=== PATIENT | female | born 1980 | race African-American/Black ===

== ENCOUNTER 2017-02-14 03:03 | Emergency (ER) | payer OTHER ==
[~2017-02-14] VITALS: Ht 180.3 cm; Wt 143.3 kg
[~2017-02-14 03:03] MED LIST: ALBUTEROL0.09 MG/A1 INH; FLEXERIL10 MG PO; IBUPROFEN600 M1 PO; MOTRIN800 MG PO; PERCOCET 325 MG1 TA2 PO; PERCOCET 5-3251 EACH PO; ROBITUSSIN W/CO10 ML PO; TYLENOL #31 TAB PO; ZOFRAN4 M1 PO; ZOFRAN4 M2 PO; ZOFRAN4 MG PO
[2017-02-14 03:16] VITALS: BP 114/77
--- NOTE | 2017-02-14 03:20 | ED UPPER/LOWER EXTREMITY COMPL ---
History of Present Illness General Chief Complaint: Lower Extremity Problems Stated Complaint: RIGHT LEG SPASMS Source: patient Exam Limitations: no limitations Vital Signs & Intake/Output Vital Signs & Intake/Output Vital Signs Date Time Temp Pulse Resp B/P Pulse O2 O2 Flow FiO2 Ox Delivery Rate 02/14 0316 98.7 90 16 114/77 98 Room Air Allergies Coded Allergies: NO KNOWN ALLERGIES (09/21/16) Reconcile Medications Albuterol Sulfate (Albuterol Sulfate Hfa) 0.09 MG/Actuation PUSHPA 2 PUFF INH Q4- 6 PRN PRN SHORTNESS OF BREATH (Reported) 90 MCG PER PUFF Cyclobenzaprine HCl 10 MG TABLET 1 TAB PO TID PRN SPASM Ibuprofen 800 MG TABLET 1 TAB PO TID PAIN Ibuprofen 600 MG TABLET 1 TAB PO TID PRN PAIN with food Ondansetron HCl (Zofran) 4 MG TABLET 1 TAB PO Q6-8P PRN NAUSEA Oxycodone HCl/Acetaminophen (Percocet 5-325 MG Tablet) 1 EACH TABLET 1 TAB PO TID PRN PAIN OXYCODONE HCL/ACETAMINOPHEN (Percocet 5-325 MG Tablet) 325 MG/5 MG TAB 1 TAB PO Q4-6 PRN PRN PAIN Triage Note: 37yo FEMALE TO TRIAGE VIA WHEELCHAIR W/CO L LEG PAIN AND SPASMS TONITE. DENIES ANY TRAUMA OR INJURY. Triage Nurses Notes Reviewed? yes Onset: Abrupt Duration: day(s): (1) Severity: severe Pain/Injury Location: Right: Other (GROIN). Method of Injury: NONE Modifying Factors: Worsens With: movement, other (WALKING). : No Patient currently breastfeeds: No HPI: 37-year-old female who presents to the ER with chief complaint of severe right groin pain that started earlier today. She states the pain was present in the morning. Denies any trauma or lifting. 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 No fever or chills. No nausea or vomiting. The pain is sharp and severe. It does not radiate any. She states that it hurts to walk and bear weight on the right leg. No history of similar symptoms in the past. She tried Motrin at home this evening without relief. Past History Travel History Traveled to [place] past 21 day No Medical History Any Pertinent Medical History? see below for history Neurological: NONE EENT: NONE Cardiovascular: NONE Respiratory: asthma Gastrointestinal: NONE Hepatic: NONE Renal: NONE Musculoskeletal: NONE Psychiatric: NONE Endocrine: NONE Blood Disorders: NONE Cancer(s): NONE SUBSTANCE ABUSE RN/Reproductive: NONE Tetanus Vaccine: 03/02/12 Surgical History Surgical History: , D+C, LYMPH NODE REMOVAL (BENIGN) Psychosocial History Who do you live with Family What is your primary language Czech Tobacco Use: Current Daily Use Daily Tobacco Use Amount/Type: =< 4 Cigarettes daily Family History Hx Contributory? No Review of Systems Review of Systems Constitutional: Denies: chills, fever. EENTM: Reports: no symptoms. Respiratory: Denies: cough, short of breath. Cardiovascular: Denies: chest pain, palpitations. Gastrointestinal/Abdominal: Denies: abdominal pain. Genitourinary: Reports: see HPI (VAGINAL IRRITATION). Musculoskeletal: Reports: see HPI (RIGHT GROIN PAIN). Denies: joint pain, joint swelling. Skin: Reports: no symptoms. Neurological/Psychological: Reports: no symptoms. Hematologic/Endocrine: Denies: bruising, bleeding, polyuria, polydipsia. Immunological: Denies: splenectomy. All Other Systems: Reviewed and Negative Physical Exam Physical Exam General Appearance: well developed/nourished, alert, awake, mild distress Head: atraumatic Eyes: Bilateral: PERRL, EOMI. Ears, Nose, Throat: normal pharynx, normal ENT inspection, hearing grossly normal Neck: normal inspection, supple Cardiovascular/Respiratory: regular rate/rhythm Gastrointestinal: SOFT, NONTENDER, OBESE Back: normal inspection Leg Left: normal range of motion, normal inspection Leg Right: normal range of motion, normal inspection Hip Left: normal range of motion, normal inspection Hip Right: normal range of motion, normal inspection, pain, TENDER TO PALPATION OVER RIGHT GROIN, NO HERNIA, TENDER WITH RIGHT LOG ROLL Knee Left: normal range of motion, normal inspection Knee Right: normal range of motion, normal inspection Foot Left: normal inspection, normal range of motion Foot Right: normal inspection, normal range of motion Neurologic/Tendon: normal sensation, normal motor functions Skin: intact, normal color, warm/dry Lymphatic: no anterior cervical arnoldo Progress Differential Diagnosis: HERNIA, MUSCULOSKELETAL STRAIN, RENAL STONE, ECTOPIC Plan of Care: Orders Procedure Date/time Status COMPREHENSIVE METABOLIC PANEL 03/29 0326 Complete CBC WITHOUT DIFFERENTIAL 02/14 326 Complete URINE 02/14 325 Complete URINALYSIS 02/14 325 Complete Laboratory Tests 02/14/17 0349: Anion Gap 8, Estimated GFR > 60, BUN/Creatinine Ratio 18.6, Glucose 109 H, Calcium 8.8, Total Bilirubin 0.4, AST 13 L, ALT 25, Alkaline Phosphatase 47, Total Protein 7.1, Albumin 3.9, Globulin 3.2, Albumin/Globulin Ratio 1.2, CBC w Diff NO MAN DIFF REQ, RBC 4.42, MCV 88.3, MCH 29.1, RDW 15.1 H, MPV 8.9, Gran % 66.9, Lymphocytes % 23.2, Monocytes % 6.9, Eosinophils % 1.9, Basophils % 1.1, Absolute Granulocytes 9.3 H, Absolute Lymphocytes 3.2, Absolute Monocytes 1.0 H, Absolute Eosinophils 0.3, Absolute Basophils 0.2, PUBS MCHC 33.0 02/14/17334: Urinalysis LIGHT H, Urine Color YEL, Urine Clarity HAZY H, Urine pH 6.0, Ur Specific [place] >= 1.030, Urine Protein TRACE H, Urine Ketones NEG, Urine Nitrite NEG, Urine Bilirubin NEG, Urine Urobilinogen 0.2, Ur Leukocyte Esterase NEG, Ur Microscopic SEDIMENT EXAMINED, Urine RBC RARE, Urine WBC RARE, Ur Epithelial Cells FEW, Urine Bacteria FEW H, Urine Mucus MOD H, Urine Hemoglobin TRACE-INTACT, Urine Glucose NEG, Urine Test NEGATIVE 4:18 am patient feeling slightly better. Labs pending. SYMPTOMS MUCH IMPROVED. AMBULATORY ON DISCHARGE. SLIGHT ELEVATION IN WBC, NO OTHER ABNORMALITIES. PATIENT WILL FOLLOW UP WITH HER PCP IN THE OFFICE. (MICHAEL LUCIA,SAMIA) Departure Departure Time of Disposition: 445 Disposition: HOME OR SELF CARE Condition: Stable Clinical Impression Primary Impression: Musculoskeletal strain Referrals: SHAISTA CARTER APRN (PCP/Family) Additional Instructions: TAKE THE MOTRIN AND CYCLOBENZAPRINE DIRECTED. FOLLOW UP WITH YOUR PRIMARY CARE DOCTOR IN THE OFFICE. RETURN TO THE ER FOR ANY CHAGING OR WORSENING SYMPTOMS. Departure Forms: Customer Survey General Discharge Information Prescriptions: Current Visit Scripts Ibuprofen 1 TAB PO TID #30 TAB Cyclobenzaprine HCl 1 TAB PO TID PRN SPASM #20 TAB
[2017-02-14 03:59] LABS: ABSOLUTE BASOPHIL COUNT 0.2 /CUMM (0.0-0.2); ABSOLUTE EOSINOPHIL COUNT 0.3 /CUMM (0.0-0.7); ABSOLUTE GRANULOCYTE CT 9.3 /CUMM (1.4-6.5); ABSOLUTE LYMPH COUNT 3.2 /CUMM (1.2-3.4); BASOPHIL % 1.1 % (0.0-2.0); EOSINOPHIL % 1.9 % (0-5); GRANULOCYTE % 66.9 % (42.2-75.2); MEAN CORPUSCULAR HGB 29.1 PG (27.0-31.0); MEAN CORPUSCULAR VOLUME 88.3 FL (81.0-99.0); MEAN PLATELET VOLUME 8.9 FL (7.4-10.4); PLATELET COUNT 257 /CUMM (130-400); RBC DISTRIBUTION WIDTH 15.1 % (11.5-14.5); RED BLOOD CELL CT 4.42 /CUMM (4.20-5.40); WHITE BLOOD CELL COUNT 13.9 /CUMM (4.8-10.8)
[2017-02-14] MEDS ORDERED: CYCLOBENZAPRINE10 M1 PO (04:48)
[2017-02-14] MEDS ORDERED: IBUPROFEN800 M1 PO (04:48)
== END 2017-02-14 05:16 ==
LOC: ERH 03:03
PROVIDERS: Emergency Medicine
DX: S39.011A Strain of muscle, fascia and tendon of abdomen, initial encounter (principal); X58.XXXA Exposure to other specified factors, initial encounter
CPT/HCPCS: 81001; 81025; 96372; J1885; J3360

== ENCOUNTER 2017-06-15 20:48 | Emergency (ER) | payer OTHER ==
[~2017-06-15] VITALS: Ht 180.3 cm; Wt 142.9 kg
[~2017-06-15 20:48] MED LIST changes: +CYCLOBENZAPRINE10 M1 PO; +IBUPROFEN800 M1 PO
--- NOTE | 2017-06-15 21:49 | ED DYSPNEA/ASTHMA COMPLAINT ---
History of Present Illness General Chief Complaint: Dyspnea (COPD, CHF, Other) Stated Complaint: DIFF BREATHING Source: patient, family, old records Exam Limitations: no limitations Vital Signs & Intake/Output Vital Signs & Intake/Output Vital Signs Date Time Temp Pulse Resp B/P B/P Pulse O2 O2 Flow FiO2 Mean Ox Delivery Rate 06/16 0157 79 20 132/78 96 Room Air 06/15 2053 97.3 80 18 115/80 95 Room Air ED Intake and Output 06/16 0000 06/15 1200 Intake Total Output Total Balance Patient 315 lb Weight Allergies Coded Allergies: NO KNOWN ALLERGIES (09/21/16) Reconcile Medications Albuterol Sulfate (Albuterol Sulfate Hfa) 0.09 MG/Actuation PUSHPA 2 PUFF INH Q4- 6 PRN PRN SHORTNESS OF BREATH (Reported) 90 MCG PER PUFF Albuterol Sulfate (Proair Hfa) 90 MCG HFA.AER.AD 2 PUF INH Q4-6 PRN PRN ASTHMA Benzonatate (Tessalon Perle) 100 MG CAPSULE 1 CAP PO TID PRN COUGH OXYCODONE HCL/ACETAMINOPHEN (Percocet 5-325 MG Tablet) 325 MG/5 MG TAB 1 TAB PO Q4-6 PRN PRN PAIN Prednisone 10 MG TABLET 1 TAB PO DAILY ASTHMA TAKE 3 TABS FOR 3 DAYS THEN TAKE 2 TABS FOR 3 DAYS THEN TAKE 1 TAB FOR 3 DAYS Triage Note: 37 YEAR OLD FEMALE HISTORY OF ASTHMA STATES THAT SHE HAS BEEN FEELING SOB SINCE THIS AM, O2 SAT 95 % ON RA. USED INHALER AND NEB MACHINE WITH LITTLE RELIEF Triage Nurses Notes Reviewed? yes : No Patient currently breastfeeds: No HPI: Patient has a history of asthma. For the past 2 days patient has been having a nonproductive cough, wheezing, shortness of breath and chest tightness. Patient denies orthopnea. There are no fevers chills. The chest tightness is constant but is alleviated when she uses her pro-air but comes back. Similar symptoms in the past when she has had asthma exacerbations. Past History Travel History Traveled to [place] past 21 day No Medical History Any Pertinent Medical History? see below for history Neurological: NONE EENT: NONE Cardiovascular: NONE Respiratory: asthma Gastrointestinal: NONE Hepatic: NONE Renal: NONE Musculoskeletal: NONE Psychiatric: NONE Endocrine: NONE Blood Disorders: NONE Cancer(s): NONE [place]/Reproductive: NONE Tetanus Vaccine: 03/02/12 Surgical History Surgical History: , D+C LYMPH NODE REMOVAL (BENIGN) Psychosocial History Who do you live with Family What is your primary language Estonian Tobacco Use: Current Daily Use Daily Tobacco Use Amount/Type: =< 4 Cigarettes daily ETOH Use: denies use Illicit Drug Use: denies illicit drug use Family History Hx Contributory? No Review of Systems Review of Systems Constitutional: Reports: no symptoms. EENTM: Reports: no symptoms. Respiratory: Reports: see HPI, cough, short of breath, wheezing. Cardiovascular: Reports: see HPI, chest pain. GI: Reports: no symptoms. Genitourinary: Reports: no symptoms. Musculoskeletal: Reports: no symptoms. Skin: Reports: no symptoms. Neurological/Psychological: Reports: no symptoms. Hematologic/Endocrine: Reports: no symptoms. Immunologic/Allergic: Reports: no symptoms. All Other Systems: Reviewed and Negative Physical Exam Physical Exam General Appearance: well developed/nourished, alert, awake, moderate distress Head: atraumatic, normal appearance Eyes: Bilateral: PERRL, EOMI. Ears, Nose, Throat: normal pharynx, normal ENT inspection, hearing grossly normal Neck: normal inspection, supple, full range of motion Respiratory: decreased breath sounds, wheezing, respiratory distress Cardiovascular: regular rate/rhythm, normal peripheral pulses Gastrointestinal: normal bowel sounds, soft, non-tender, no organomegaly Extremities: normal inspection, normal capillary refill, normal range of motion, no edema Neurologic/Psych: no motor/sensory deficits, awake, alert, oriented x 3, normal mood/affect Skin: intact, normal color Lymphatic: no anterior cervical arnoldo Core Measures ACS in differential dx? No Severe Sepsis Present: No Septic Shock Present: No Progress Differential Diagnosis: asthma, bronchitis, COPD, pneumonia, pneumothorax Plan of Care: Orders Procedure Date/time Status URINE 06/15 2148 Complete Laboratory Tests 06/15/172209: Urine Test NEGATIVE Diagnostic Imaging: Viewed by Me: Radiology Read. Discussed w/RAD: Radiology Read. CXR Impression: PATIENT: MEGHANN CLIFFORD PRESENT AGE: 37 PATIENT ACCOUNT NO: [id number] : 80 LOCATION: [facility] ORDERING PHYSICIAN: GILBERT NINA MD SERVICE DATE: 06/15/17-2213 EXAM TYPE: RAD - XRY- PORTABLE CHEST XRAY EXAMINATION: XR PORTABLE CHEST CLINICAL INFORMATION: Shortness of breath. Wheezing. COMPARISON: Chest x-ray 01/03/2015 TECHNIQUE: Portable frontal view of the chest was obtained. 10:31 PM FINDINGS: No significant abnormality is noted involving the heart, lungs, mediastinum, bony thorax or soft tissues. IMPRESSION: Unremarkable examination. DICTATED BY: MIYA CIFUENTES MD DATE/TIME DICTATED:06/15/172321 CONTAINER SHOP WELDER:CATHY DATE/ TIME TRANSCRIBED:06/15/172321 CONFIDENTIAL, DO NOT COPY WITHOUT APPROPRIATE AUTHORIZATION. <Electronically signed in Other Vendor System> SIGNED BY: MIYA CIFUENTES MD 06/15/172326 Initial ED EKG: none Comments: Patient is feeling much better. There is slight expiratory wheeze however much better air entry. Patient feels comfortable going home. Departure Departure Disposition: HOME OR SELF CARE Condition: Stable Clinical Impression Primary Impression: Asthma Referrals: SHAISTA CARTER APRN (PCP/Family) Additional Instructions: YOU REALLY NEED TO STOP SMOKING TAKE STEROIDS PRESCRIBED RETURN FOR ANY CONCERNS Departure Forms: Customer Survey General Discharge Information Prescriptions: Current Visit Scripts Albuterol Sulfate (Proair Hfa) 2 PUF INH Q4-6 PRN PRN ASTHMA #1 INHAL Benzonatate (Tessalon Perle) 1 CAP PO TID PRN COUGH #30 CAP Prednisone 1 TAB PO DAILY #18 TAB TAKE 3 TABS FOR 3 DAYS THEN TAKE 2 TABS FOR 3 DAYS THEN TAKE 1 TAB FOR 3 DAYS Critical Care Note Critical Care Note Critical Care Time: non-applicable
--- NOTE | 2017-06-15 23:27 | RADIOLOGY REPORT ---
EXAMINATION: XR PORTABLE CHEST CLINICAL INFORMATION: Shortness of breath. Wheezing. COMPARISON: Chest x-ray 01/03/2015 TECHNIQUE: Portable frontal view of the chest was obtained. 10:31 PM FINDINGS: No significant abnormality is noted involving the heart, lungs, mediastinum, bony thorax or soft tissues. IMPRESSION: Unremarkable examination.
[2017-06-16] MEDS ORDERED: PREDNISONE10 M2 PO (01:51)
[2017-06-16] MEDS ORDERED: PROAIR HFA8.5 GM INH (01:51)
[2017-06-16] MEDS ORDERED: TESSALON PERLE100 M1 PO (01:51)
[2017-06-16 01:57] VITALS: BP 132/78
== END 2017-06-16 01:57 ==
LOC: ERH 20:48
DX: R07.89 Other chest pain (principal); J45.909 Unspecified asthma, uncomplicated
CPT/HCPCS: 1263; 81025

== ENCOUNTER 2017-12-06 15:38 | Inpatient (IN) | payer OTHER ==
[~2017-12-06] VITALS: Ht 180.3 cm; Wt 131.5 kg
[~2017-12-06 15:38] MED LIST changes: +CHERATUSSIN AC118 M1 PO; +CYCLOBENZAPRINE5 M2 PO; +FLONASE ALLERG9.9 ML NAS; +GUAIFEN-CODEINE10 ML PO; +MEDROL4 M2 PO; +PREDNISONE10 M2 PO; +PREDNISONE50 M1 PO; +PROAIR HFA8.5 GM INH; +TESSALON PERLE100 M1 PO; +VENTOLIN HFA18 GM INH; +ZITHROMAX250 M2 PO; +ZITHROMAX500 M2 PO
--- NOTE | 2017-12-06 16:06 | ED DYSPNEA/ASTHMA COMPLAINT ---
History of Present Illness General Chief Complaint: Wheezing/Asthma Stated Complaint: SOB, HX OF ASTHMA Source: patient Exam Limitations: clinical condition Vital Signs & Intake/Output Vital Signs & Intake/Output Vital Signs Date Time Temp Pulse Resp B/P B/P Pulse O2 O2 Flow FiO2 Mean Ox Delivery Rate 12/06 1711 93 Nasal 2.5L Cannula 12/06 1602 97 Nasal 4.0L Cannula 12/06 1602 99.0 79 24 124/73 97 Nasal 4.0L Cannula 12/06 1549 91 Nasal 3.0L Cannula 12/06 1540 98.6 78 22 123/76 88 Room Air Room Air Allergies Coded Allergies: No Known Allergies (12/06/17) Reconcile Medications Albuterol Sulfate (Proair Hfa) 90 MCG HFA.AER.AD 2 PUF INH Q4-6 PRN PRN asthma Albuterol Sulfate (Ventolin Hfa) 90 MCG HFA.AER.AD 2 PUF INH Q4-6 PRN PRN SHORTNESS OF BREATH Codeine Phosphate/Guaifenesi (Cheratussin AC Syrup) 10 MG-100 MG/5 ML LIQUID 10 ML PO QPM PRN COUGH Prednisone 10 MG TABLET 1 TAB PO AD INFLAMMATION Prednisone 10 MG TABLET 1 TAB PO AD INFLAMMATION DAY1/DAY2 FOUR TABS DAY3/DAY4 THREE TABS DAY5/DAY6 TWO TABS DAY 7 ONE TAB Triage Note: PT BIBA FROM HOME AFTER BECOMING ACUTELY SOB. PT STATES SHE HAS HAD A DARK SPUTUM PRODUCING COUHG FOR A WEEK WITHOUT FEVERS. PT HAS A HX OF ASTHMA. PT GIVEN DUONEB BY EMS, AT HOME SHE WAS 88% ON RA AND INCREASED TO 92% AFTER DUO. PT STATES SHE HAD CHEST PAIN AT HOME BUT HAS NOW RESOLVED. BS BY EMS 89 AND IV PLACED BY TUBE WINDER Triage Nurses Notes Reviewed? yes Onset: Abrupt Duration: day(s):, constant, continues in ED Timing: recent history Severity: moderate, severe Activities at Onset: none : No Patient currently breastfeeds: No HPI: 37-year-old female comes into the emergency room for further evaluation of shortness of breath. Patient has a history of asthma. Patient has been increasingly short of breath the past few days with associated wheezing. Some associated cough and chest pain. Denies any fever or vomiting. Some mucus production. comes in for further evaluation. Past History Travel History Traveled to [place] past 21 day No Medical History Any Pertinent Medical History? 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 No Review of Systems Review of Systems Constitutional: Reports: no symptoms. EENTM: Reports: see HPI. Respiratory: Reports: see HPI. Cardiovascular: Reports: no symptoms. GI: Reports: no symptoms. Genitourinary: Reports: no symptoms. Musculoskeletal: Reports: no symptoms. Skin: Reports: no symptoms. Neurological/Psychological: Reports: no symptoms. Hematologic/Endocrine: Reports: no symptoms. Immunologic/Allergic: Reports: no symptoms. All Other Systems: Reviewed and Negative Physical Exam Physical Exam General Appearance: well developed/nourished, alert, awake, moderate distress Head: atraumatic, normal appearance Eyes: Bilateral: normal appearance, EOMI. Ears, Nose, Throat: normal ENT inspection, hearing grossly normal Neck: normal inspection Respiratory: decreased breath sounds, rhonchi, wheezing, respiratory distress ( moderate) Cardiovascular: regular rate/rhythm Gastrointestinal: soft Extremities: normal inspection Neurologic/Psych: awake, alert, oriented x 3, normal gait, normal mood/affect Skin: intact, normal color Core Measures ACS in differential dx? Yes CVA/TIA Diagnosis No Sepsis Present: No Sepsis Focused Exam Completed? No Progress Differential Diagnosis: asthma, AMI, bronchitis, costochondritis, CHF, COPD, musculoskeletal pain, pericarditis, pulmonary embolism, pneumonia, pneumothorax, unstable angina Plan of Care: Orders Procedure Date/time Status Regular Diet 12/07 B Active CBC WITHOUT DIFFERENTIAL 12/07 0500 Active BASIC ELECTROLYTES PLUS BUN&CR 12/07 0500 Active SPECIMEN TO BE OBTAINED 12/06 182 Active STREP PNEUMO URINARY ANTIGEN 12/06 182 Active LEGIONELLA URINARY ANTIGEN 12/06 182 Active Lab Add-on Test 12/06 182 Active RAPID VIRAL INFLUENZA A 12/06 1818 Active Patient Data 12/06 180 Active TRC EVALUATION (GEN) 12/06 1807 Active Pathway - chart 12/06 1805 Active House Staff 12/06 180 Active Misc Message 12/06 1747 Active ED Holding Orders 12/06 1747 Active Vital Signs 12/06 1747 Active Code Status 12/06 1747 Active Admit to inpatient 12/06 1746 Active Add-on Test (ER Only) 12/06 1741 Active TROPONIN LEVEL 12/06 1607 Active PHOSPHORUS 12/06 1607 Active MAGNESIUM 12/06 1607 Active URINE DRUGS OF ABUSE 12/06 1557 Active EKG 12/06 1556 Active HUMAN BETA HCG SCREEN 12/06 1551 Active COMPREHENSIVE METABOLIC PANEL 12/06 1551 Active CBC WITHOUT DIFFERENTIAL 12/06 1551 Complete Intake & Output 12/06 1539 Active VTE Mechanical Prophylaxis 12/06 UNK Active Current Medications Sig/Mitzy Start time Last Medication Dose Stop Time Status Admin Enoxaparin Sodium 40 MG DAILY 12/07 1000 UNVr (Lovenox) Magnesium Sulfate 1 GM ONCE ONE 12/06 1600 AC 12/06 (Mag Sulfate in D5) 12/06 1959 1601 Dextrose/Water 100 ML (D5W) Laboratory Tests 12/06/17 1607: Anion Gap 13, Estimated GFR > 60, BUN/Creatinine Ratio 11.3, Glucose 106 H, Calcium 8.8, Phosphorus Pending, Magnesium Pending, Total Bilirubin 0.2, AST 17, ALT 29, Alkaline Phosphatase 48, Troponin I < 0.01, Total Protein 6.9, Albumin 3.9, Globulin 3.0, Albumin/Globulin Ratio 1.3, Total Beta HCG NEGATIVE, CBC w Diff NO MAN DIFF REQ, RBC 4.59, MCV 90.3, MCH 29.2, RDW 15.4 H, MPV 8.7, Gran % 58.1, Lymphocytes % 26.8, Monocytes % 6.2, Eosinophils % 8.4 H, Basophils % 0.5 , Absolute Granulocytes 6.6 H, Absolute Lymphocytes 3.0, Absolute Monocytes 0.7 H, Absolute Eosinophils 1.0, Absolute Basophils 0.1, PUBS MCHC 32.3 L Microbiology 12/06 1824 URINE ROUT: Legionella Antigen - ORD 12/06 1824 URINE ROUT: Streptococcus pneumoniae Antigen (M - ORD 12/06 1817 NASOPHARYN: Influenza Virus A & B Rapid Smear - ORD Diagnostic Imaging: Viewed by Me: Radiology Read. Discussed w/RAD: Radiology Read. Radiology Impression: PATIENT: MEGHANN CLIFFORD PRESENT AGE: 37 PATIENT ACCOUNT NO: [id number] : 80 LOCATION: [facility] ORDERING PHYSICIAN: Bg NGUYEN SERVICE DATE: 12/06/17 EXAM TYPE: RAD - XRY-CHEST XRAY, TWO VIEWS EXAMINATION: XR CHEST CLINICAL INFORMATION: Shortness of breath. COMPARISON: Chest x-ray 11/17/2017 TECHNIQUE: 2 views of the chest were obtained. FINDINGS: No significant abnormality is noted involving the heart , lungs, mediastinum, bony thorax or soft tissues. IMPRESSION: Unremarkable examination. DICTATED BY: Trung Gutierrez MD DATE/TIME DICTATED:12/06/171638 BENEFITS ADVISOR:CATHY DATE/TIME TRANSCRIBED:12/06/171638 CONFIDENTIAL, DO NOT COPY WITHOUT APPROPRIATE AUTHORIZATION. <Electronically signed in Other Vendor System> SIGNED BY: Trung Gutierrez MD 12/06/17 1642 Initial ED EKG: normal sinus rhythm, rate (77), nonspecific ST T wave chg Departure Departure Disposition: STILL A PATIENT Condition: Stable Clinical Impression Primary Impression: Respiratory failure Secondary Impressions: Asthma, Hypoxia Referrals: Danielle Evans APRN (PCP/Family) Departure Forms: Customer Survey General Discharge Information Admission Note Spoke With: Sidney LUCIA,Caryl Documentation of Exam: Documentation of any treatments & extenuating circumstances including Concerns Regarding Discharge (functional status, medication knowledge or non-compliance, living conditions, etc.) that warrant an admission rather than observation: Patient is hypoxic to 85% on room air with ambulation. Patient's is still tachypneic after DuoNeb magnesium Solu-Medrol. She is on a continuous neb. She will require pulmonary consultation. Supplemental oxygen. Medically not safe for discharge. Critical Care Note Critical Care Note Critical Care Time: 30-74 min (60)
[2017-12-06 16:19] LABS: ABSOLUTE BASOPHIL COUNT 0.1 /CUMM (0.0-0.2); ABSOLUTE GRANULOCYTE CT 6.6 /CUMM (1.4-6.5); ABSOLUTE MONOCYTE COUNT 0.7 /CUMM (0.10-0.60); BASOPHIL % 0.5 % (0.0-2.0); EOSINOPHIL % 8.4 % (0-5); GRANULOCYTE % 58.1 % (42.2-75.2); HEMATOCRIT 41.5 % (37-47); MEAN CORPUSCULAR HGB 29.2 PG (27.0-31.0); MEAN CORPUSCULAR HGB CONC 32.3 G/DL (33.0-37.0); MEAN CORPUSCULAR VOLUME 90.3 FL (81.0-99.0); MEAN PLATELET VOLUME 8.7 FL (7.4-10.4); PLATELET COUNT 278 /CUMM (130-400); RBC DISTRIBUTION WIDTH 15.4 % (11.5-14.5); RED BLOOD CELL CT 4.59 /CUMM (4.20-5.40); WHITE BLOOD CELL COUNT 11.4 /CUMM (4.8-10.8)
--- NOTE | 2017-12-06 16:42 | RADIOLOGY REPORT ---
EXAMINATION: XR CHEST CLINICAL INFORMATION: Shortness of breath. COMPARISON: Chest x-ray 11/17/2017 TECHNIQUE: 2 views of the chest were obtained. FINDINGS: No significant abnormality is noted involving the heart, lungs, mediastinum, bony thorax or soft tissues. IMPRESSION: Unremarkable examination.
--- NOTE | 2017-12-06 17:55 | History & Physical ---
Jose Daniel LUCIA,[facility] 12/06/17 7934: General Information and HPI MD Statement: I have seen and personally examined MEGHANN CLIFFORD and documented this H&P. The patient is a 37 year old F who presented with a patient stated chief complaint of [asthma attack]. Source of Information: patient History of Present Illness: 37 yo F with phx of asthma presenting for asthma exascerbation. She has a history of multiple ED visits for dyspnea including the last one in November 17 2017. The patient states she has been wheezing x2 weeks however she became acutely SOB today when she walked from the bathroom to her room and was doing laundry. She states this activity triggered her asthma today. She also complains of productive yellow cough which produces a table spoon amount of sputum. She denies any blood in her sputum. The patient states she does not use her albuterol inhaler daily and only uses it during acute episodes of asthma attack. She states that her attacks have become more frequent as she ages. She does not have a PCP. She states she smokes 10 cigarettes daily x 19 years and currently smokes 3 blunts of marijuana a day. She does not have a pcp and gets her albuterol during her ED visits. She states she also had midsternal chestp pain today which was non radiating. She also complains of join pain in particularly her neck. She denies any diaphoresis, palpitations, or worsening of the pain with activity. She denies any allergies, pets at home or work/environmental exposures. Her O2 saturation was recorded to 88% on RA. She was treated with oxygen, and nebs in the ED. Allergies/Medications Allergies: Coded Allergies: No Known Allergies (12/06/17) Home Med list Albuterol Sulfate (Proair Hfa) 90 MCG HFA.AER.AD 2 PUF INH Q4-6 PRN PRN asthma Albuterol Sulfate (Ventolin Hfa) 90 MCG HFA.AER.AD 2 PUF INH Q4-6 PRN PRN SHORTNESS OF BREATH Codeine Phosphate/Guaifenesi (Cheratussin AC Syrup) 10 MG-100 MG/5 ML LIQUID 10 ML PO QPM PRN COUGH Prednisone 10 MG TABLET 1 TAB PO AD INFLAMMATION Prednisone 10 MG TABLET 1 TAB PO AD INFLAMMATION DAY1/DAY2 FOUR TABS DAY3/DAY4 THREE TABS DAY5/DAY6 TWO TABS DAY 7 ONE TAB Past History Travel History Traveled to [place] past 21 day No Medical History Neurological: NONE EENT: NONE Cardiovascular: NONE Respiratory: asthma Gastrointestinal: NONE Hepatic: NONE Renal: NONE Musculoskeletal: NONE Psychiatric: NONE Endocrine: NONE Blood Disorders: NONE Cancer(s): NONE MEAT LUGGER/Reproductive: NONE Tetanus Vaccine: 03/02/12 Surgical History Surgical History: , D+C LYMPH NODE REMOVAL (BENIGN) Past Family/Social History Psychosocial History Smoking Status: Current Everyday Smoker ETOH Use: occasional use Illicit Drug Use: marijuana Review of Systems Review of Systems Constitutional: Reports: chills. Denies: diaphoresis, fever, malaise, weakness. Cardiovascular: Reports: chest pain. Denies: edema, palpitations, syncope. Respiratory: Reports: cough, short of breath, sputum production, wheezing. GI: Denies: abdominal pain, changes in stool. Genitourinary: Reports: no symptoms. Musculoskeletal: Reports: joint pain. Skin: Reports: no symptoms. Exam & Diagnostic Data Last 24 Hrs of Vital Signs/I&O Vital Signs Date Time Temp Pulse Resp B/P B/P Pulse O2 O2 Flow FiO2 Mean Ox Delivery Rate 12/06 2148 Nasal 2.0L Cannula 12/06 2100 97.8 96 20 122/80 94 Nasal Cannula 12/06 2032 95 Nasal 3.0L Cannula 12/06 1916 82 18 124/67 95 Nasal 4.0L Cannula 12/06 1711 93 Nasal 2.5L Cannula 12/06 1602 97 Nasal 4.0L Cannula 12/06 1602 99.0 79 24 124/73 97 Nasal 4.0L Cannula 12/06 1549 91 Nasal 3.0L Cannula 12/06 1540 98.6 78 22 123/76 88 Room Air Room Air Intake & Output 12/06 1600 12/06 0800 12/06 0000 Intake Total 0 Output Total Balance 0 Intake, Oral 0 Physical Exam General Appearance Alert, Oriented X3, Cooperative, Moderate Distress HEENT PERRLA, no palpable/tender lymph nodes, ?cataracts of eye Cardiovascular Regular Rate, Normal S1, Normal S2, no sternal tenderness Lungs audible wheezing from across room. diffusely decreased lung sounds. Abdomen Normal Bowel Sounds, Soft, No Tenderness Extremities no LE edema Vascular 2+ radial pulses Last 24 Hrs of Labs/Dwayne: Laboratory Tests 12/06/172004: Urine Opiates Screen > 4000.00 H, Methadone Screen 77, Barbiturate Screen 64, Ur Phencyclidine Scrn 18.80, Amphetamines Screen 194, U Benzodiazepines Scrn < 85, Urine Cocaine Screen > 1000 H, Urine Cannabis Screen 75.50 H 12/06/17 1607: Anion Gap 13, Estimated GFR > 60, BUN/Creatinine Ratio 11.3, Glucose 106 H, Calcium 8.8, Phosphorus 4.1, Magnesium 1.7, Total Bilirubin 0.2, AST 17, ALT 29, Alkaline Phosphatase 48, Troponin I < 0.01, Total Protein 6.9, Albumin 3.9, Globulin 3.0, Albumin/Globulin Ratio 1.3, Total Beta HCG NEGATIVE, CBC w Diff NO MAN DIFF REQ, RBC 4.59, MCV 90.3, MCH 29.2, RDW 15.4 H, MPV 8.7, Gran % 58.1, Lymphocytes % 26.8, Monocytes % 6.2, Eosinophils % 8.4 H, Basophils % 0.5, Absolute Granulocytes 6.6 H, Absolute Lymphocytes 3.0, Absolute Monocytes 0.7 H, Absolute Eosinophils 1.0, Absolute Basophils 0.1, PUBS MCHC 32.3 L Microbiology 12/06 2004 URINE ROUT: Legionella Antigen - COMP 12/06 2004 URINE ROUT: Streptococcus pneumoniae Antigen (M - COMP 12/06 1852 NASOPHARYN: Influenza Virus A & B Rapid Smear - COMP Assessment/Plan Assessment: A: 37 yo F with a pmhx of recurrent asthma exascerbations, no PCP, currently a daily cigarette and marijuana smoker presenting for asthma exascaerbation. P: #asthma exascerbation Most likele 2/2 to smoking cigarettes and marijuana WBC 11.4 with elevated eosinophils but pt denying any allergies or pets CXR negative for any acute disease -contact father regarding admission (unable to reach his cell phone) -trc/nebs/IV steroids -f/u flu, urinary leigonella and strep pneumo -Consider ABG if respiratory status worsens -Peak flow measurement q post nebulizer treatment -establish pcp and pulmnology care #smoking hx -smoking cessation -pt currently denying any nicotine patch or gum -f/u utox #cataracts Pt has cataracts seen on exam Pt is obese but BSG on admission was 106 -will check hgba1c #DVT prophylaxis: lovenox #FULL CODE As Ranked By This Provider Problem List: 1. Asthma exacerbation Core Measures/Misc (08/05) Acute Coronary Syndrome ACS Diagnosis: No Congestive Heart Failure Congestive Heart Failure Diagnosis No Cerebrovascular Accident CVA/TIA Diagnosis: No VTE (View Protocol) VTE Risk Factors Acute Medical Illness No Mechanical VTE Prophylaxis d/t N/A MechProphylax Ordered No VTE Pharm Prophylaxis d/t NA PharmProphylax ordered Sepsis (View protocol) Sepsis Present: No Neri LUCIA,Pedro 12/06/172033: Resident Review Statement Resident Statement: examined this patient, discussed with regulatory internship, agreed with regulatory internship Other Findings: This is a 37-year-old lady with a past medical history significant for asthma, daily smokers of 10 ciggs/day since teenage years, marijuana use, multiple ED visits for dyspnea including the last one in November 17 2017, is BIBA for evaluation of shortness of breath. Patient reports that 2 days ago, she developed wheezing and productive yellow cough. Her wheezing progressivley worsened and today while doing laundry she had significant wheezing with shortness of breath prompting her to active EMS. Associated symptoms include chest tightness with no radiating features, or diaphoresis. ED records notes that when the EMS arrived, patient O2 saturation was recorded to 88% on RA. She did receive DuoNeb treatment on the field which she reports gave her some relief. She denies any fever/chills, recent URI infection, abdominal pain, diarrhea,dysuria ,sick contacts, or recent travel. Regarding her asthma management, she reports only intermittently using her rescue inhaler (albuterol) with no nighttime symptoms (even though ED records do show more frequent visits for dyspnea. Her albuterol is the one that was prescribed by ED physician during last visit. She states she was diagnosed with asthma since childhood, however she does not recall any PFTs studies or seeing any pulmonology at all. She denies any hospitalization for asthma exacerbation or intubation. Pertinent negative include no pet allergies, environmental allergies or workplace exposure. Assessment This is a 37 yo lady with a hx of asthma, recent multiuple ed visits for dyspnea , daily smoker of both tobacco (10 ciggs per day) and marijuana, presents with symptoms consistent with asthma exacerbation. CXR unremarkable, afebrile with non significant leukocytosis but elevated eisonophillia. Impression * Asthma exacerbation. Most likely secondary to active daily smoking of tobacco and marijuana. Infectious etiology is always considered in patients with an asthma exacerbation, however the patient is afebrile, CXR unremarkable , and his very mild leukocytosis is probably secondary to stress demargination from recent prednisone use rather than a bacterial infectious etiology. Influenza consideration is however warranted, given the winter season and cough and resp symptoms. * Hx of Asthma. Based on frequency OF ED visit records, most likely patient has at mimimum mild persistent asthma. * Tobacco use. * Substance abuse history of daily marijuana use. Plan Admit to general med floor O2 supplementation to keep sats above 88% Albuterol and ipratropium nebulizer as needed Status post SOLU- Medrol 120 mg at ED, will start 40 mg every 8 for now and taper accordingly Consider ABG if respiratory status worsens Peak flow measurement q post nebulizer treatment Rapid flu test Will obtain sputum culture and urinary strep and legionella Nicotine patch 7 mg daily Smoking cessation counseling was provided and will continue on a daily basis f/u utox Patient would need discharge coordination with referral to [place] PCP for close follow-up of her asthma condition and eventual referral for PFTs and pulmonology consult. Code Status: FC DVT: Adilene Crook MD, [facility] 12/06/175: Attending MD Review Statement Attending Statement Attending MD Statement: examined this patient, discuss w/resident/PA/DAMAGE PREVENTION COORDINATOR, agreed w/resident/PA/DAMAGE PREVENTION COORDINATOR, reviewed images, amended to note Attending Assessment/Plan: 37 yo F with h/o asthma (diagnosed as a teenager), active smoker and marijuana user, seen twice in the ER in Oct 2017 for asthma exacerbation treated with prednisone taper, returns today for evaluation ofworsening dyspnea, wheezing and productive cough over the past 1 week. EMS noted she was hypoxic to 88% on RA -- > improved to 92% after duonebs. Also c/o chest tightness. No fever or chills. No previous intubations or ICU admissions. She does not follow up with [facility] and has not had PFTs. Vitals stable, except for sats 88% RA --> 91% on 3L --> 95% on 4L. Exam: AAO, in moderate respiratory distress, tearful, able to speak in short sentences and no use of accessory muscles. Chest b/l reduced air entry with diffuse wheezing, scattered rhonchi+, Heart S1S2 regular, LE: no edema. Labs: WBC 11.4, eosinophils 8.4%, trop neg, beta HCG neg. Urine tox screen positive for opiates, cocaine and cannabis. CXR: unremarkable. EKG: SR, no acute changes. Flu swab is negative. Assessment and plan: 1. Acute hypoxic respiratory failure 2. Asthma exacerbation 3. Eosinophilia 4. Active smoker 5. Polysubstance abuse utox positive for opiates, cocaine and cannabis, although patient reported only use of marijuana. 6. Leukocytosis is likely steroid induced/ reactive - Admit to general medicine - Sputum cultures - TRC with nebs RTC - IV solumedrol 40 Q8 - O2 supplementation to keep sats > 92% - Peak flows Q shift - Smoking cessation counseling - Nicotine patch - Outpatient follow up with [facility] and PCP needs referral DVT ppx Lovenox. Full code.
--- NOTE | 2017-12-06 19:42 | Admission Certification ---
Admission Certification Certification Statement - As attending physician, I certify that at the time of - admission, based on clinical presentation, severity of - symptoms, need for further diagnostic testing and - therapeutic interventions, and risk of adverse outcomes - without in-hospital treatment, in my clinical assessment, - this patient requires an acute hospital stay for a minimum - of two nights or longer. I have also considered psychsocial - factors such as support system, advanced age, financial - issues, cognitive issues, and failed out-patient treatments, - past re-admission history, safety of patient, and lack of - compliance as applicable. Specific rationale supporting this admission is: Acute hypoxic respiratory failure, Asthma exacerbation.
[2017-12-06 21:00] VITALS: BP 122/80
[2017-12-07 06:55] VITALS: BP 124/80
--- NOTE | 2017-12-07 08:38 | PN- Student ---
Subjective Subjective: FULL STUDENT NOTE CC: "Having a hard time breathing" HPI: 37 yo F hospital day 2 who presented to the ED with a chief complaint of shortness of breath. PMHx of asthma. Has been experiencing SOB, wheezing, and a productive cough for the past 2 days. Cough is producing rougly a teaspoon of yellow sputum. She is experiencing increased difficulty in breathing with exertion and was BIBA (O2 was 88% on room air). She has been taking her inhaler without relief. She is expericing chest pain/tightness but it does not radiate. Denies any sick contacts, recent travel, allergies, or workplace exsposures. She was recently in the ED for a previous asthmatic exacerbation (11/17) where she received solumedrol, proventil and magnesium sulfate. She also received cheratussin AC cough syrup that provided gooD relief. CXR shows unremarkable examination. Negative flu swab, urine strep, and legionella. Awaiting return of suptum stain and culture. This morning states she did not sleep well and was tearful becasue she wants to go home. Undergoing a trial without nasal cannula O2, if no complications may consider discharge for today. Currently able to spontaneously void with no difficulty. Denies any headaches, n/v, chest pain or diffiuclty ambulating but states she is experiencing some dizziness. PMHx: Asthma (dx at 6yr) PSH: C/S x 2, tonsillectomy FH: None Social Hx: Smokes ~10 cigarettes a day for 19yrs, marijuana daily, denies ETOH use. Not currently working. Meds: Proventil inhaler, cheratussin AC cough syrup Allergies: Denies environmental, food, or drug allergies Review of Systems Constitutional: Denies: chills, diaphoresis, fever, malaise, weakness. Cardiovascular: Reports: chest pain. Denies: edema, palpitations, syncope. Respiratory: Reports: cough, short of breath, sputum production, wheezing. GI: Denies: abdominal pain, changes in stool. Genitourinary: Reports: no symptoms. Musculoskeletal: Reports: joint pain. Skin: Reports: no symptoms. Objective Objective: Vital Signs Date Time Temp Pulse Resp B/P B/P Pulse O2 O2 Flow FiO2 Mean Ox Delivery Rate 12/07 0655 98.0 108 20 124/80 93 Nasal 1.5L Cannula 12/07 0000 Nasal 1.5L Cannula 12/06 2147 Nasal 2.0L Cannula 12/06 2099 97.8 96 20 122/80 94 Nasal Cannula 12/06 2034 Nasal 2.0L Cannula 12/06 2031 95 Nasal 3.0L Cannula 12/06 1916 82 18 124/67 95 Nasal 4.0L Cannula 12/06 1711 93 Nasal 2.5L Cannula 12/06 1602 97 Nasal 4.0L Cannula 12/06 160 99.0 79 24 124/73 97 Nasal 4.0L Cannula 12/06 1549 91 Nasal 3.0L Cannula 12/06 1540 98.6 78 22 123/76 88 Room Air Room Air Intake & Output 12/07 1600 12/07 0800 12/07 0000 Intake Total 120 200 Output Total 400 Balance -280 200 Intake, Oral 120 200 Output, Urine 400 Patient 290 lb Weight Appearance: Alert and oriented, NAD Cardiovascular: Regular rate and rhythm, no mumurs, rubs, or gallops Pulmonary: Expiratory wheeze present throughout the lung space but no accessory mucles of respiration in use or stridor Abdomen: Normoactive bowel sounds, abdomen soft, no TTP Extremities: 2+ distal pulses (radial), no edema, erythema, or warmth of the calves Current Medications Sig/Mitzy Start time Last Medication Dose Route Stop Time Status Admin Acetaminophen 650 MG Q6P PRN 12/06 2044 AC 12/06 PO 2045 Acetaminophen 1,000 MG Q6P PRN 12/06 2044 AC IV Albuterol Sulfate 3 ML EVERY 4 HRS/AWAKE 12/07 0800 AC 12/07 INH 0816 Albuterol Sulfate 3 ML ONCE ONE 12/06 1700 DC 12/06 INH 12/06 1701 1710 Albuterol Sulfate 3 ML ONCE ONE 12/06 1700 DC 12/06 INH 12/06 1701 1711 Albuterol Sulfate 3 ML ONCE ONE 12/06 1700 DC 12/06 INH 12/06 1701 1711 Albuterol Sulfate 3 ML ONCE ONE 12/06 1700 DC 12/06 INH 12/06 1701 1711 Albuterol Sulfate 3 ML ONCE ONE 12/06 1700 DC 12/06 INH 12/06 1701 1711 Albuterol Sulfate 3 ML ONCE ONE 12/06 1700 DC 12/06 INH 12/06 1701 1711 Albuterol Sulfate 3 ML ONCE ONE 12/06 1600 DC 12/06 INH 12/06 1601 1540 Enoxaparin Sodium 40 MG DAILY 12/07 1000 AC SC Ipratropium [place] 2.5 ML EVERY 4 HRS/AWAKE 12/07 0800 AC 12/07 INH 0816 Ipratropium [place] 2.5 ML ONCE ONE 12/06 1600 DC 12/06 INH 12/06 1601 1540 Lorazepam 1 MG Q1P PRN 12/07 0830 AC IV Magnesium Sulfate 1 GM ONCE ONE 12/06 1600 DC 12/06 Dextrose/Water 100 ML IV 12/06 1959 1601 Methylprednisolone 40 MG Q8 12/07 0600 AC IV Methylprednisolone 125 MG ONCE ONE 12/06 1600 DC 12/06 IV 12/06 1601 1556 Methylprednisolone 0 .STK-MED ONE 12/06 1555 DC .ROUTE Nicotine 7 MG DAILY 12/07 1000 AC TOP Oxycodone HCl 10 MG Q6 PRN 12/06 2045 CAN PO Polyethylene Glycol 17 GM DAILY 12/07 1000 AC PO Senna 187 MG AT BEDTIME 12/07 2200 AC PO Results Results: Laboratory Tests 12/07/17 0710: Hemoglobin A1c Pendin.9 12/07/17 0710: Sodium Pending, Potassium Pending, Chloride Pending, Carbon Dioxide Pending, Anion Gap Pending, BUN Pending, Creatinine Pending, BUN/Creatinine Ratio Pending , CBC w Diff Pending, WBC Pending, RBC Pending, Hgb Pending, Hct Pending, MCV Pending, MCH Pending, RDW Pending, Plt Count Pending, MPV Pending, PUBS MCHC Pending 12/06/17 2005: Urine Opiates Screen > 4000.00 H, Methadone Screen 77, Barbiturate Screen 64, Ur Phencyclidine Scrn 18.80, Amphetamines Screen 194, U Benzodiazepines Scrn < 85, Urine Cocaine Screen > 1000 H, Urine Cannabis Screen 75.50 H 12/06/17 1607: Anion Gap 13, Estimated GFR > 60, BUN/Creatinine Ratio 11.3, Glucose 106 H, Calcium 8.8, Phosphorus 4.1, Magnesium 1.7, Total Bilirubin 0.2, AST 17, ALT 29, Alkaline Phosphatase 48, Troponin I < 0.01, Total Protein 6.9, Albumin 3.9, Globulin 3.0, Albumin/Globulin Ratio 1.3, Total Beta HCG NEGATIVE, CBC w Diff NO MAN DIFF REQ, RBC 4.59, MCV 90.3, MCH 29.2, RDW 15.4 H, MPV 8.7, Gran % 58.1, Lymphocytes % 26.8, Monocytes % 6.2, Eosinophils % 8.4 H, Basophils % 0.5, Absolute Granulocytes 6.6 H, Absolute Lymphocytes 3.0, Absolute Monocytes 0.7 H, Absolute Eosinophils 1.0, Absolute Basophils 0.1, PUBS MCHC 32.3 L Microbiology 12/07 623 LOWER RESP: Respiratory Culture - RECD 12/07 623 LOWER RESP: Gram Stain - RECD 12/06 2004 URINE ROUT: Legionella Antigen - COMP 12/06 2004 URINE ROUT: Streptococcus pneumoniae Antigen (M - COMP 12/06 1851 NASOPHARYN: Influenza Virus A & B Rapid Smear - COMP Assessment/Plan Assessment: 37 yo F hospital day 2 who presented to the ED with a chief complaint of shortness of breath. PMHx of asthma. Has been experiencing SOB, wheezing, and a productive cough for the past 2 days. Plan: 1. Asthma Exacerbation * Currently 93% O2 on 1.5L oxygen * Continue solumedrol 40mg q8hrs * Continue Ipratropium neb 2.5mg q4hrs * Continue Albuterol neb 3 mL q4hr * Refer to outpatient practice director * Encourage smoking cessation * Follow up with sputum stain and culture * Undergoing trial without nasal cannula O2, if no complications may consider discharge to home today. 2. Recreational Drug use * Urine Opiates Screen > 4000.00 H, Methadone Screen 77, Barbiturate Screen 64, Ur Phencyclidine Scrn 18.80, Amphetamines Screen 194, U Benzodiazepines Scrn < 85, Urine Cocaine Screen > 1000 H, Urine Cannabis Screen 75.50 H * Placed on CIWA Protocol (scoring 3) * Ativan 1mg q1P PRN 3. Elevated glucose * HgbA1c: 5.9 * At risk for developing DM2 based on weight and HgbA1c * Behavioral modification (diet and exercise) is recommended at this time * Behavioral modification (diet and exercise) is recommended at this time
[2017-12-07 08:50] LABS: ABSOLUTE BASOPHIL COUNT 0 /CUMM (0.0-0.2); ABSOLUTE EOSINOPHIL COUNT 0 /CUMM (0.0-0.7); ABSOLUTE GRANULOCYTE CT 10.3 /CUMM (1.4-6.5); ABSOLUTE LYMPH COUNT 0.8 /CUMM (1.2-3.4); ABSOLUTE MONOCYTE COUNT 0.4 /CUMM (0.10-0.60); BASOPHIL % 0.1 % (0.0-2.0); EOSINOPHIL % 0 % (0-5); HEMATOCRIT 41.8 % (37-47); MEAN CORPUSCULAR HGB 29.7 PG (27.0-31.0); MEAN CORPUSCULAR HGB CONC 32.8 G/DL (33.0-37.0); MEAN CORPUSCULAR VOLUME 90.6 FL (81.0-99.0); MEAN PLATELET VOLUME 9.5 FL (7.4-10.4); PLATELET COUNT 329 /CUMM (130-400); RBC DISTRIBUTION WIDTH 14.9 % (11.5-14.5); RED BLOOD CELL CT 4.61 /CUMM (4.20-5.40); WHITE BLOOD CELL COUNT 11.5 /CUMM (4.8-10.8)
[2017-12-07 10:08] LABS: GRANULOCYTE % 89.4 % (42.2-75.2)
[2017-12-07] MEDS ORDERED: SPIRIVA18 MCG INH ×2 (11:25→11:43)
--- NOTE | 2017-12-07 11:27 | Patient Discharge Instructions ---
Discharge Instructions General Discharge Information Special Instructions: Please follow up with your new PCP (Dr. Delarosa). Please continue your new medications. Acute Coronary Syndrome Inclusion Criteria At DC or during hospital stay patient has or had the following: ACS DIAGNOSIS No Discharge Core Measures Meds if any: Prescribed or Continued at Discharge Meds if any: NOT Prescribed or Continued at Discharge Congestive Heart Failure Inclusion Criteria At DC or during hospital stay patient has or had the following: CHF DIAGNOSIS No Discharge Core Measures Meds if any: Prescribed or Continued at Discharge LANA/ARB for EF <40% No Meds if any: NOT Prescribed or Continued at Discharge Cerebrovascular accident Inclusion Criteria At DC or during hospital stay patient has or had the following: CVA/TIA Diagnosis No Discharge Core Measures Meds if any: Prescribed or Continued at Discharge Meds if any: NOT Prescribed or Continued at Discharge Venous thromboembolism Inclusion Criteria VTE Diagnosis No VTE Type NONE VTE Confirmed by (Test) NONE Discharge Core Measures - Per Current guidelines, there needs to be overlap - treatment for the first 5 days of Warfarin therapy. - If discharged on Warfarin prior to 5 days of - overlap therapy, the patient will need to be - assessed for post discharge needs including - *Post discharge parental anticoagulation - *Warfarin and/or parental anticoagulation education - *Follow up date to check INR post discharge At least 5 days overlap therapy as Inpatient No Meds if any: Prescribed or Continued at Discharge Note: Overlap Therapy is Warfarin and Anticoagulant Meds if any: NOT Prescribed or Continued at Discharge
[2017-12-07] MEDS ORDERED: PREDNISONE10 M2 PO ×2 (11:28→11:43)
--- NOTE | 2017-12-07 12:47 | PN- Housestaff ---
Jose Daniel LUCIA,[facility] 12/07/17 1246: Subjective Follow-up For: asthma exascerbation Subjective: No acute events overnight. Pt states SOB has not improved and is the same. She was seen crying today. Wanted to leave AMA but I originally was able to convince her to stay. She later stated she wanted to leave and was discharged by the team as her O2 sat was 93% on RA. Review of Systems Constitutional: Reports: no symptoms. Cardiovascular: Reports: no symptoms. Respiratory: Reports: cough, short of breath. Gastrointestinal: Reports: no symptoms. Genitourinary: Reports: no symptoms. Musculoskeletal: Reports: no symptoms. Objective Last 24 Hrs of Vital Signs/I&O Vital Signs Date Time Temp Pulse Resp B/P B/P Pulse O2 O2 Flow FiO2 Mean Ox Delivery Rate 12/07 0815 95 Nasal 2.0L Cannula 12/07 0800 94 Nasal 1.5L Cannula 12/07 0655 98.0 108 20 124/80 93 Nasal 1.5L Cannula 12/07 0000 Nasal 1.5L Cannula 12/06 2148 Nasal 2.0L Cannula 12/06 2100 97.8 96 20 122/80 94 Nasal Cannula 12/06 2035 Nasal 2.0L Cannula 12/06 2032 95 Nasal 3.0L Cannula 12/06 1916 82 18 124/67 95 Nasal 4.0L Cannula 12/06 1711 93 Nasal 2.5L Cannula 12/06 1602 97 Nasal 4.0L Cannula 12/06 1602 99.0 79 24 124/73 97 Nasal 4.0L Cannula 12/06 1549 91 Nasal 3.0L Cannula Intake & Output 12/07 1600 12/07 0800 12/07 0000 Intake Total 120 200 Output Total 400 Balance -280 200 Intake, Oral 120 200 Output, Urine 400 Patient 290 lb Weight Physical Exam General Appearance: Alert, Cooperative, Moderate Distress, patient audibly wheezing, seen crying Cardiovascular: Regular Rate, Normal S1, Normal S2 Lungs: diffuse decreased lung sounds, audible diffuse wheezing with prolonged expiration Abdomen: Normal Bowel Sounds, Soft, No Tenderness Extremities: 2+ radial pulses Other Physical Findings: Patient seemed upset and was crying. I asked if she would have like to see psych /social work but she declined. Current Medications: Current Medications Sig/Mitzy Start time Last Medication Dose Route Stop Time Status Admin Acetaminophen 650 MG Q6P PRN 12/06 2045 DCD 12/06 PO 2046 Acetaminophen 1,000 MG Q6P PRN 12/06 2045 DCD IV Albuterol Sulfate 3 ML EVERY 4 HRS/AWAKE 12/07 0800 DCD 12/07 INH 1137 Albuterol Sulfate 3 ML ONCE ONE 12/06 1700 DC 12/06 INH 12/06 1701 1710 Albuterol Sulfate 3 ML ONCE ONE 12/06 1700 DC 12/06 INH 12/06 1701 1711 Albuterol Sulfate 3 ML ONCE ONE 12/06 1700 DC 12/06 INH 12/06 1701 1711 Albuterol Sulfate 3 ML ONCE ONE 12/06 1700 DC 12/06 INH 12/06 1701 1711 Albuterol Sulfate 3 ML ONCE ONE 12/06 1700 DC 12/06 INH 12/06 1701 1711 Albuterol Sulfate 3 ML ONCE ONE 12/06 1700 DC 12/06 INH 12/06 1701 1711 Albuterol Sulfate 3 ML ONCE ONE 12/06 1600 DC 12/06 INH 12/06 1601 1540 Benzonatate 100 MG TIDPRN PRN 12/07 0945 DCD PO Docusate Sodium 100 MG 0945 12/07 0945 DC 12/07 PO 12/07 0946 1023 Enoxaparin Sodium 40 MG DAILY 12/07 1000 DCD SC Ipratropium Matthews 2.5 ML EVERY 4 HRS/AWAKE 12/07 0800 DCD 12/07 INH 1137 Ipratropium Matthews 2.5 ML ONCE ONE 12/06 1600 DC 12/06 INH 12/06 1601 1540 Lorazepam 1 MG Q1P PRN 12/07 0830 DCD IV Magnesium Sulfate 1 GM ONCE ONE 12/06 1600 DC 12/06 Dextrose/Water 100 ML IV 12/06 1959 1601 Methylprednisolone 40 MG Q8 12/07 0600 DCD IV Methylprednisolone 125 MG ONCE ONE 12/06 1600 DC 12/06 IV 12/06 1601 1556 Methylprednisolone 0 .STK-MED ONE 12/06 1555 DC .ROUTE Nicotine 7 MG DAILY 12/07 1000 DCD TOP Oxycodone HCl 10 MG Q6 PRN 12/06 2045 CAN PO Polyethylene Glycol 17 GM DAILY 12/07 1000 DCD 12/07 PO 1023 Senna 187 MG AT BEDTIME 12/07 2200 DCD PO Last 24 Hrs of Lab/Dwayne Results Last 24 Hrs of Labs/Mics: Laboratory Tests 12/07/17 0710: Hemoglobin A1c 5.9 H 12/07/17 0710: Anion Gap 15, Estimated GFR > 60, BUN/Creatinine Ratio 23.3, CBC w Diff NO MAN DIFF REQ, RBC 4.61, MCV 90.6, MCH 29.7, RDW 14.9 H, MPV 9.5, Gran % 89.4 H, Lymphocytes % 7.3 L, Monocytes % 3.2, Eosinophils % 0, Basophils % 0.1, Absolute Granulocytes 10.3 H, Absolute Lymphocytes 0.8 L, Absolute Monocytes 0.4, Absolute Eosinophils 0, Absolute Basophils 0, PUBS MCHC 32.8 L 12/06/172004: Urine Opiates Screen > 4000.00 H, Methadone Screen 77, Barbiturate Screen 64, Ur Phencyclidine Scrn 18.80, Amphetamines Screen 194, U Benzodiazepines Scrn < 85, Urine Cocaine Screen > 1000 H, Urine Cannabis Screen 75.50 H 12/06/17 1607: Anion Gap 13, Estimated GFR > 60, BUN/Creatinine Ratio 11.3, Glucose 106 H, Calcium 8.8, Phosphorus 4.1, Magnesium 1.7, Total Bilirubin 0.2, AST 17, ALT 29, Alkaline Phosphatase 48, Troponin I < 0.01, Total Protein 6.9, Albumin 3.9, Globulin 3.0, Albumin/Globulin Ratio 1.3, Total Beta HCG NEGATIVE, CBC w Diff NO MAN DIFF REQ, RBC 4.59, MCV 90.3, MCH 29.2, RDW 15.4 H, MPV 8.7, Gran % 58.1, Lymphocytes % 26.8, Monocytes % 6.2, Eosinophils % 8.4 H, Basophils % 0.5, Absolute Granulocytes 6.6 H, Absolute Lymphocytes 3.0, Absolute Monocytes 0.7 H, Absolute Eosinophils 1.0, Absolute Basophils 0.1, PUBS MCHC 32.3 L Microbiology 12/07 623 LOWER RESP: Respiratory Culture - CAN Cancelled: NUMBER OF SQUAMOUS CELLS INDICATES POOR QUALITY SPECIMEN 12/07 623 LOWER RESP: Gram Stain - CAN Cancelled: NUMBER OF SQUAMOUS CELLS INDICATES POOR QUALITY SPECIMEN 12/06 2004 URINE ROUT: Legionella Antigen - COMP 12/06 2004 URINE ROUT: Streptococcus pneumoniae Antigen (M - COMP 12/06 1852 NASOPHARYN: Influenza Virus A & B Rapid Smear - COMP Assessment/Plan Assessment: A: 37 yo F with a pmhx of recurrent asthma exascerbations, no PCP, currently a daily cigarette and marijuana smoker presenting for asthma exascaerbation. P: #acute asthma exascerbation Most likely 2/2 to smoking cigarettes and marijuana Patient is obese Initial WBC 11.4 with elevated eosinophils but pt denying any allergies or pets WBC 10/07 11.5 CXR negative for any acute disease Treated with trc/nebs/IV steroids Flu, urinary leigonella and strep pneumo negative -Patient requesting to be discharged home. Appears in some emotional distress is causing her to leave but she will not explain. O2 sat 93% on RA. -will discharge with spiriva, prednisone taper, -gave referral to Dr. Delarosa for PCP establishment and referral to copd -encouraged smoking cessastion #substance abuse Utox positive for opiates, cocaine, cannabis -encouraged smoking cessation -pt currently denying any nicotine patch or gum #obesity -f/u with pcp #cataracts Pt has cataracts seen on exam Pt is obese but BSG on admission was 106 hgba1c was borderline at 5.9 -f/u with pcp #DVT prophylaxis: lovenox #FULL CODE Problem List: 1. Asthma exacerbation 2. Substance abuse Pain Ratin Pain Location: none Pain Goal: Pain 4 or less Pain Plan: pain pathway Tomorrow's Labs & Rationales: none JenniferEdgarmariza 12/07/17 1423: Attending MD Review Statement Attending Statement Attending MD Statement: examined this patient, discuss w/resident/PA/HR REPRESENTATIVE, agreed w/resident/PA/HR REPRESENTATIVE, discussed with family, reviewed EMR data (avail), discussed with nursing, discussed with case mgmt, reviewed images, amended to note Attending Assessment/Plan: Patient seen/examined bedside. Patient denies any new compliants. Patient is no use of accessory muscles. B/l breath sounds+, Not on oxygen supplementation. Dramatic response to steroids. Assessment and plan 1. Acute hypoxic respiratory failure 2. Asthma exacerbation 3. Eosinophilia 4. Active smoker 5. Polysubstance abuse utox positive for opiates, cocaine and cannabis, although patient reported only use of marijuana. 6. Leukocytosis is likely steroid induced/ reactive - Patient requesting discharge, PO steroids taper, albuterol, inhaled therapy. - Smoking cessation counseling - Outpatient follow up with Physician Scientist and PCP needs referral
--- NOTE | 2017-12-09 22:14 | Discharge Summary ---
Visit Information Visit Dates Admission Date: 12/06/17 Discharge Date: 12/07/17 Hospital Course Course Attending Physician: Ellen Rodriguez MD Primary Care Physician: [facility] Course: A: 37 yo F with a pmhx of recurrent asthma exascerbations, no PCP, currently a daily cigarette and marijuana smoker presenting for asthma exascaerbation. P: #acute asthma exascerbation Patient presented with 88% O2 sat on RA initally. Her asthma is most likely 2/2 to smoking cigarettes and marijuana. Of note inital labs reaveled initial WBC 11.4 with elevated eosinophils but denies any allergies or pets. The patient is also obese. CXR negative for any acute disease. Flu, urinary leigonella and strep pneumo negative. She was treated with trc/nebs/IV steroids. She requested to be discahrged home and appeared to be in emotional distress causing her to leave but she will not explain what is causing her distress. Upon discharge her O2 sat was 93% on RA. She was discharged with with spiriva, prednisone taper. She was given referral to Dr. Delarosa for PCP establishment and further referral for pulmonary testing. She was encouraged to stop smoking. #substance abuse Utox was positive for opiates, cocaine, cannabis. She is a daily cigarette soker and states she smokes 3 blunts a day. #cataracts and obesity Pt has cataracts seen on exam. Pt is obese but BSG on admission was 106. His hgba1c was borderline at 5.9 Allergies: Coded Allergies: No Known Allergies (12/06/17) Disposition Summary Disposition Principal Diagnosis: Asthma exascerbation Cataracts Substance abuse Additional Diagnosis: Obesity Discharge Disposition: home or self care Discharge Instructions General Discharge Information Code Status: Full Code Patient's Diet: Regular Patient's Activity: As tolerated Follow-Up Instructions/Appts: Please follow up with your new PCP (Dr. Delarosa). Please continue your new medications. Medications at Discharge Discharge Medications: Stop taking the following medications: Prednisone (Prednisone) 10 MG TABLET ORAL As Directed Qty = 19 Prednisone (Prednisone) 10 MG TABLET ORAL As Directed Qty = 19 Continue taking these medications: Albuterol Sulfate (Proair Hfa) 90 MCG HFA.AER.AD 2 Puff Inhale through mouth EVERY 4-6 HOURS NEEDED as needed for asthma Qty = 1 Comments: Last Taken:12/07/17 Time:1130 Codeine Phosphate/Guaifenesi (Cheratussin AC Syrup) 10 MG-100 MG/5 ML LIQUID 10 Milliliters ORAL Every night as needed for COUGH Qty = 100 Comments: DID NOT TAKE IN HOSPITAL Albuterol Sulfate (Ventolin Hfa) 90 MCG HFA.AER.AD 2 Puff Inhale through mouth EVERY 4-6 HOURS NEEDED as needed for SHORTNESS OF BREATH Qty = 1 Comments: Last Taken:12/07/17 Time:1137 Start taking the following new medications: Tiotropium Winger (Spiriva) 18 MCG CAP.W.DEV 1 Capsule Inhale through mouth DAILY Qty = 30 No Refills Instructions: . Comments: DID NOT TAKE IN HOSPITAL Prednisone (Prednisone) 10 MG TABLET 1 Tablet ORAL DAILY Qty = 20 No Refills Instructions: DATE TAB 4 12/09- 3 12/11- 2 12/13- 1. Comments: DID NOT START IN HOSPITAL Copies To: Isaura LUCIA,Isaura
== END 2017-12-07 12:15 | DRG 141 ==
LOC: ERH 15:38 → ERHI 17:46 → ENRESERV 19:07 → ENTRNSPT 19:39 → EDTRNSPTSTS 19:40 → ERHI 19:48 → 2NA 20:35 → CMPTRNSPT 20:48 → 2NA 12-07 10:26 → ENPENDDIS 12-07 11:57 → 2NA 12-07 12:15
PROVIDERS: Physician Assistant Medical; Student in an Organized Health Care Education/Training Program
DX: J45.901 Unspecified asthma with (acute) exacerbation (principal); F17.210 Nicotine dependence, cigarettes, uncomplicated; E66.9 Obesity, unspecified; Z68.41 Body mass index [BMI] 40.0-44.9, adult; J96.01 Acute respiratory failure with hypoxia; D72.1 Eosinophilia; T38.0X5A Adverse effect of glucocorticoids and synthetic analogues, initial encounter; F19.129 Other psychoactive substance abuse with intoxication, unspecified
CPT/HCPCS: 2NASP; 36415; 71046; 80307; 82436; 87070; 87449; 87450; 87804; 87804-59; 93005; 93010; 94644; J1650; J2920; J2930

== ENCOUNTER 2017-12-25 10:02 | Emergency (ER) | payer OTHER ==
[~2017-12-25] VITALS: Ht 177.8 cm; Wt 131.5 kg
[~2017-12-25 10:02] MED LIST changes: +SPIRIVA18 MCG INH
[2017-12-25 10:12] VITALS: BP 118/79
--- NOTE | 2017-12-25 10:25 | ED DYSPNEA/ASTHMA COMPLAINT ---
History of Present Illness General Chief Complaint: Wheezing/Asthma Stated Complaint: SOB Source: patient, old records Exam Limitations: no limitations Vital Signs & Intake/Output Vital Signs & Intake/Output Vital Signs Date Time Temp Pulse Resp B/P B/P Pulse O2 O2 Flow FiO2 Mean Ox Delivery Rate 12/25 1216 90 12/25 1107 92 12/25 1012 97.9 96 20 118/79 90 Room Air Allergies Coded Allergies: No Known Allergies (12/06/17) Reconcile Medications Albuterol Sulfate (Proair Hfa) 90 MCG HFA.AER.AD 2 PUF INH Q4-6 PRN PRN asthma Albuterol Sulfate (Proair Hfa) 90 MCG HFA.AER.AD 2 PUF INH Q4-6 PRN PRN asthma Albuterol Sulfate 2.5 MG/3 ML (0.083 %) VIAL.NEB 1 Vial INH/ Q4P PRN wheezing Albuterol Sulfate (Ventolin Hfa) 90 MCG HFA.AER.AD 2 PUF INH Q4-6 PRN PRN SHORTNESS OF BREATH Codeine Phosphate/Guaifenesi (Cheratussin AC Syrup) 10 MG-100 MG/5 ML LIQUID 10 ML PO Q6HR PRN COUGH Codeine Phosphate/Guaifenesi (Cheratussin AC Syrup) 10 MG-100 MG/5 ML LIQUID 10 ML PO QPM PRN COUGH Fluticasone Propionate (Flonase Allergy Relief) 50 MCG/ACTUATION SPRAY.SUSP 2 SPRAY BRENDEN DAILY RHINTIS Methylprednisolone. (Medrol) 4 MG TAB.DS.PK 1 DP PO AD asthma 6 on day 1 then reduce by one tablet daily until gone [nebulizer machine] 0 use as directed Prednisone 10 MG TABLET 1 TAB PO DAILY ASTHMA DATE TAB 12/07- 4 12/09- 3 12/11- 2 12/13- 1. Tiotropium [place] (Spiriva) 18 MCG CAP.W.DEV 1 CAP INH DAILY ASTHMA . Triage Note: 37 YEAR OLD FEMALE STATES THAT SHE HAS ASTHMA AND THAT SHE HAS HAD COLD SYMPTOMS FOR THE PAST FEW DAYS AND THAT HER ASTHMA STARTED TO BOTHER HER YESTERDAY, COMPLAINS OF WHEEZING AND SOB, O2 SAT 90 % ON RA. Triage Nurses Notes Reviewed? yes Onset: Abrupt Duration: day(s): (2), constant Timing: recent history Severity: mild, moderate Prior Episodes/Possible Cause: frequent episodes Associated Symptoms: cough : No Patient currently breastfeeds: No HPI: 37 year old female with history of asthma, current smoker presents to the ER for evaluation complaining of feeling short of breath for the past 2 days associated with wheezing which she attributes to a cold that began 2 days ago. She states she's had a cough productive of green sputum congestion and 2 episodes of posttussive vomiting yesterday. She took cough medicine yesterday that helped however ran out she is not taken anything today including her inhaler. She states she's been seen numerous times in the past for similar complaints and is requesting a nebulizer treatment and prednisone and then she would like to be discharged home- she states she is not staying in the hospital despite her o2 sat being 90% on room air. She denies fever chills chest pain abdominal pain diarrhea sick contacts. She is not currently on prednisone or antibiotics (Manuel Neil) Past History Travel History Traveled to [place] past 21 day No Medical History Any Pertinent Medical History? see below for history Neurological: NONE EENT: NONE Cardiovascular: NONE Respiratory: asthma Gastrointestinal: NONE Hepatic: NONE Renal: NONE Musculoskeletal: NONE Psychiatric: NONE Endocrine: NONE Blood Disorders: NONE Cancer(s): NONE NUCLEAR SPECTROSCOPIST/Reproductive: NONE History of MRSA: No History of VRE: No History of CDIFF: No Tetanus Vaccine: 03/02/12 Surgical History Surgical History: , D+C LYMPH NODE REMOVAL (BENIGN) Psychosocial History Who do you live with Family What is your primary language Tuvaluan Tobacco Use: Current Daily Use Daily Tobacco Use Amount/Type: => 5 Cigarettes daily ETOH Use: denies use Illicit Drug Use: denies illicit drug use Family History Hx Contributory? No (Manuel Neil) Review of Systems Review of Systems Constitutional: Reports: see HPI. Comments Review of systems: See HPI, All other systems negative. Constitutional, no chills no fever HEENT: no sore throat no congestion Cardiovascular: No chest pain Skin: no rashes, no change in skin Respiratory: see hpi gi: no nausea vomiting or diarrhea : No dysuria Muscle skeletal: No joint pain, no back pain Neurologic: , no headache Psych: No stress Heme/endocrine: No bruising (Manuel Neil) Physical Exam Physical Exam General Appearance: well developed/nourished, alert, awake Respiratory: chest non-tender Comments: Well-developed well-nourished person in no acute distress HEENT: Normal EENT exam; PERRL, EOMI,HEAD is atraumatic. moist mucous membranes. Neck: Supple, normal range of motion Back: Full range of motion Cardiovascular: Regular rate and rhythms no murmurs rubs Respiratory:No respiratory distress. Patient speaking in full complete sentences. Breath sounds clear to auscultation bilaterally: NO W/R/R Abdomen: Soft, nontender, Normal bowel sounds. No rebound/guarding Extremity: No edema, full range of motion of extremities Neuro: Alert oriented x3, motor sensory normal,There were no obvious focal neurologic abnormalities. Skin: No appreciable rash on exposed skin, skin is warm and dry. Psych: Mood and affect is normal, memory and judgment is normal. Core Measures ACS in differential dx? No CVA/TIA Diagnosis No Sepsis Present: No Sepsis Focused Exam Completed? No (Manuel Neil) Progress Differential Diagnosis: asthma, AMI, bronchitis, CHF, COPD, musculoskeletal pain , pulmonary embolism, pneumonia, pneumothorax, influenza Plan of Care: Current Medications Sig/Mitzy Start time Last Medication Dose Stop Time Status Admin Albuterol Sulfate 3 ML ONCE ONE 12/25 1200 UNVr (Proventil) 12/25 1201 Ipratropium [place] 2.5 ML ONCE ONE 12/25 1200 UNVr (Atrovent) 12/25 1201 duoneb and prednisone ordered 1130- pt 94% on ra after tx feeling sig improved, i walked with alexx to the bathroom with continuous pulse ox monitoring 93-94% she denies sob with ambulation, no chest pain 1245 patient was feeling improved after second breathing treatment and is wishing to go home I discussed the plan of care we'll send her home with medications for cough, pro-air inhaler Medrol dosepak and nebulizer machine. Return precautions were discussed at length she feels comfortable plan cleared for discharge Initial ED EKG: none (Manuel Neil) Departure Departure Disposition: HOME OR SELF CARE Condition: Stable Clinical Impression Primary Impression: Asthma exacerbation Qualifiers: Asthma severity: mild Asthma persistence: intermittent Qualified Code: J45.21 - Mild intermittent asthma with (acute) exacerbation Referrals: Danielle Evans APRN (PCP/Family) Additional Instructions: Follow-up with your primary care physician Medrol Dosepak as directed cough medicine with codeine use caution as this is a narcotic and will make you drowsy. No driving while taking. Flonase as discussed pro-air inhaler as needed return to the emergency room anytime sooner if any concerns. Departure Forms: Customer Survey General Discharge Information Prescriptions: Current Visit Scripts Albuterol Sulfate (Proair Hfa) 2 PUF INH Q4-6 PRN PRN asthma #1 INHAL Albuterol Sulfate 1 Vial INH/ Q4P PRN wheezing #50 Vial Methylprednisolone. (Medrol) 1 DP PO AD #1 DP 6 on day 1 then reduce by one tablet daily until gone Fluticasone Propionate (Flonase Allergy Relief) 2 SPRAY BRENDEN DAILY #1 UNIT Codeine Phosphate/Guaifenesi (Cheratussin AC Syrup) 10 ML PO Q6HR PRN COUGH #200 ML [nebulizer machine] 0 #1 UNIT use as directed (Manuel Neil) PA/HISTOLOGIST Co-Sign Statement Statement: ED Attending supervision documentation- I saw and evaluated the patient. I have also reviewed all the pertinent lab results and diagnostic results. I agree with the findings and the plan of care as documented in the PA's/HISTOLOGIST's documentation. x I have reviewed the ED Record and agree with the PA's/HISTOLOGIST's documentation. [] Additions or exceptions (if any) to the PAs/HISTOLOGIST's note and plan are summarized below: [] (Krysten LUCIA,Vinnie) Critical Care Note Critical Care Note Critical Care Time: non-applicable (Manuel Neil)
[2017-12-25] MEDS ORDERED: FLONASE ALLERG9.9 ML NAS (11:44)
[2017-12-25] MEDS ORDERED: GUAIFEN-CODEINE10 ML PO (11:44)
[2017-12-25] MEDS ORDERED: MEDROL4 M2 PO (11:44)
[2017-12-25] MEDS ORDERED: PROAIR HFA8.5 GM INH (11:44)
[2017-12-25] MEDS ORDERED: ALBUTEROL2.5 MG/3 M INH/SOL (11:44)
[2017-12-25] MEDS ORDERED: CHERATUSSIN AC118 M1 PO (11:47)
[2017-12-25] MEDS ORDERED: nebulizer machine (11:51)
== END 2017-12-25 12:53 ==
LOC: ERH 10:02
DX: J45.901 Unspecified asthma with (acute) exacerbation (principal); F17.210 Nicotine dependence, cigarettes, uncomplicated
CPT/HCPCS: 1263